=== PATIENT | female | born 1985 | race Caucasian/White ===

== ENCOUNTER 2016-06-20 09:35 | Emergency (ER) | payer MEDICAID ==
[~2016-06-20] VITALS: Ht 152.4 cm; Wt 84.1 kg
[2016-06-20] MEDS ORDERED: PROPARACAINE OPHTH 0.5%, 15ML ONE (10:50)
[2016-06-20] MEDS ORDERED: FLUORESCEIN OPHTHALMIC 1 MG STRIP ONE (10:50)
[2016-06-20] MEDS ORDERED: PROPARACAINE OPHTH 0.5%, 15ML EACHEYE ONE (11:00)
[2016-06-20] MEDS ORDERED: FLUORESCEIN OPHTHALMIC 1 MG STRIP EACHEYE ONE (11:00)
[2016-06-20 11:16] VITALS: BP 127/77
== END 2016-06-20 11:18 | disposition home or self-care (01) ==
LOC: ED 11:05
DX: H10.9 Unspecified conjunctivitis (principal); J45.909 Unspecified asthma, uncomplicated; Z88.1 Allergy status to other antibiotic agents
CPT/HCPCS: 99283

== ENCOUNTER 2016-06-30 02:55 | Emergency (ER) | payer MEDICAID ==
[~2016-06-30] VITALS: Ht 152.4 cm; Wt 85.7 kg
[2016-06-30 02:58] VITALS: BP 158/86
== END 2016-06-30 04:02 | disposition home or self-care (01) ==
LOC: ED 03:14
DX: K08.89 Other specified disorders of teeth and supporting structures (principal); J45.909 Unspecified asthma, uncomplicated
CPT/HCPCS: 99283

== ENCOUNTER 2016-07-31 12:39 | Emergency (ER) | payer MEDICAID ==
[~2016-07-31] VITALS: Ht 152.4 cm; Wt 82.8 kg
[2016-07-31 12:40] VITALS: BP 135/86
== END 2016-07-31 13:10 | disposition left against medical advice (07) ==
LOC: ED 13:00
DX: K08.89 Other specified disorders of teeth and supporting structures (principal)

== ENCOUNTER 2016-07-31 18:16 | Emergency (ER) | payer MEDICAID | END 2016-07-31 18:51 | disposition left against medical advice (07) | LOC: ED 18:45 | DX: K08.89 Other specified disorders of teeth and supporting structures (principal) ==

== ENCOUNTER 2016-08-01 12:14 | Emergency (ER) | payer MEDICAID ==
[~2016-08-01] VITALS: Ht 152.4 cm; Wt 82.7 kg
[2016-08-01 12:15] VITALS: BP 127/83
== END 2016-08-01 12:45 | disposition left against medical advice (07) ==
LOC: ED 12:26
DX: K08.89 Other specified disorders of teeth and supporting structures (principal); Z53.21 Procedure and treatment not carried out due to patient leaving prior to being seen by health care provider

== ENCOUNTER 2016-08-02 09:35 | Emergency (ER) | payer MEDICAID ==
[~2016-08-02] VITALS: Ht 152.4 cm; Wt 84.0 kg
[2016-08-02 09:38] VITALS: BP 142/85
== END 2016-08-02 10:32 | disposition home or self-care (01) ==
LOC: ED 10:29
DX: K02.9 Dental caries, unspecified (principal); F17.210 Nicotine dependence, cigarettes, uncomplicated; J45.909 Unspecified asthma, uncomplicated; F12.10 Cannabis abuse, uncomplicated; F15.10 Other stimulant abuse, uncomplicated
CPT/HCPCS: 99283

== ENCOUNTER 2019-12-29 16:38 | Emergency (ER) | payer MEDICAID ==
[~2019-12-29] VITALS: Ht 152.4 cm; Wt 68.9 kg
[2019-12-29 16:48] VITALS: BP 103/51
--- NOTE | 2019-12-29 17:09 | NUR ---
PT EXHIBITING PARANOID BEHAVIOUR, NOT WANTING TO SIT DOWN, PACING IN ROOM, LACK OF EYE CONTACT, WOULD NOT ALLOW RN TO TAKE HER TEMP. PT DENIED SI/HI. PT WANTED TO LEAVE. PT ENCOURAGED TO STAY TO BE TREATED FOR HER VAGINAL PAIN/DISCHARGE BUT PT REFUSED AND LEFT. UPRIGHT STEADY GAIT.
== END 2019-12-29 17:13 | disposition left against medical advice (07) ==
LOC: ED 17:00
DX: N89.8 Other specified noninflammatory disorders of vagina (principal)
CPT/HCPCS: 99281